=== PATIENT | female | born 1930 | race African-American/Black ===

== ENCOUNTER 2019-04-12 14:24 | Inpatient (IN) | payer MEDICARE, MEDICAID ==
--- NOTE | 2019-04-12 15:24 | RAD ---
LEFT SHOULDER 2 VIEWS: Date: 04/12/2019 HISTORY: Left shoulder deformity. FINDINGS: Very severe bone demineralization. Very severe medial displacement of an oblique fracture through the humeral neck with over 3.0 cm of displacement and severe foreshortening. There is no pneumothorax or pleural effusion. Atherosclerosis of aorta with ectasia. Old granulomatous disease. No dislocation. IMPRESSION: Very severely displaced oblique fracture through the humeral neck. Very considerable displacement and foreshortening and resultant deformity. Diffuse bony demineralization. Other findings as above. POS: TPC
--- NOTE | 2019-04-12 15:32 | CT ---
BRAIN CT WITHOUT IV CONTRAST: Date: 04/12/2019 HISTORY: Injury from a fall. FINDINGS: No focal mass or midline shift. No intra or extra-axial hemorrhage. Tiny focal area of mucosal diseas e in the left sphenoid sinus. Mastoids are clear. There is evidence for fairly prominent degenerative -type callus posterior to the dens in the upper cervical spine. IMPRESSION: No mass or bleed, or other significant acute process. POS: TPC
--- NOTE | 2019-04-12 15:38 | RAD ---
Exam: Chest one view HISTORY:Preoperative exam. Left humerus fracture. Comparison: None FINDINGS: Cardiac silhouette:Normal cardiac silhouette. Mitral valve annular calcification Aorta: Atherosclerosis of the aorta Pulmonary vessels: Normal Costophrenic angles: Clear LUNGS: Hyperinflation with chronic changes. Pneumothorax: None Osseous abnormalities: Diffuse bony mineralization. Proximal left humeral diaphyseal fracture. IMPRESSION: 1. Atherosclerosis. 2. Hyperinflation with chronic lung parenchymal changes.
[2019-04-12 15:40] LABS: #Basophils 0.1 thou/uL (0.0-0.2); #Monocytes 0.8 thou/uL (0.11-0.59); #Neutrophils 12.4 thou/uL (1.40-6.50); %Basophils 0.4 % (0.0-1.0); %Eosinophils 0.1 % (0.0-10.0); %Lymphocytes 7.1 % (21.0-51.0); %Monocytes 5.6 % (0.0-10.0); %Neutrophils 86.8 % (42.0-75.0); Hemoglobin 10.6 g/dL (12.0-16.0); Mean Corpuscular HGB CONC 33.1 g/dL (32.0-36.0); Mean Corpuscular Hemoglobin 28.4 pg (27.0-31.0); Mean Corpuscular Volume 85.8 fL (78.0-98.0); Mean Platelet Volume 8.3 fL (7.4-10.4); Platelet Count 360 thou/uL (130-400); RBC Distribution Width 17.1 % (11.5-14.5); Red Blood Cell (RBC) Count 3.72 mill/uL (4.20-5.40); White Blood Cell (WBC) Count 14.3 thou/uL (4.8-10.8)
[2019-04-12] MEDS ORDERED: Dextrose 5% in Water 1,000 ML IV PRN (15:49)
[2019-04-12] MEDS ORDERED: Ondansetron PF 4 MG/2 ML Vial IVP PRN (15:49)
[2019-04-12] MEDS ORDERED: Dextrose 50% Abboject 50 ML SYRINGE SLOW IVP PRN (15:49)
[2019-04-12 15:50] LABS: INR-International Normal Ratio 0.9; PTT 25.8 SEC (22.9-36.1); Prothrombin Time 12.6 SEC (12.0-14.7)
[2019-04-12] MEDS ORDERED: traMADol HCl 50 MG TAB PO PRN (15:52)
[2019-04-12] MEDS ORDERED: hydrALAZINE 20 MG/ML VIAL ONE (16:00)
[2019-04-12 16:05] LABS: ALT (SGPT) 9 U/L (8-55); AST (SGOT) 16 U/L (5-34); Albumin 3.7 g/dL (3.4-4.8); Alkaline Phosphatase 133 U/L (40-110); Anion Gap 13 mmol/L (10-20); BUN (Urea Nitrogen) 7 mg/dL (9.8-20.1); Bilirubin, Total 0.2 mg/dL (0.2-1.2); Calc. Creatinine Clearance 0 mL/min (70-130); Calcium 9.2 mg/dL (7.8-10.44); Carbon Dioxide 25 mmol/L (23-31); Chloride 107 mmol/L (98-107); Estimated GFR-MDRD 75; Globulin 3.1 g/dL (2.4-3.5); Glucose 125 mg/dL (83-110); Potassium 3.4 mmol/L (3.5-5.1); Protein, Total 6.8 g/dL (6.0-8.3); Sodium 142 mmol/L (136-145)
[2019-04-12 16:33] LABS: Bacteria/HPF 3+ HPF (None Seen); Bilirubin Negative (Negative); Blood, Urine Negative (Negative); Clarity Turbid (Clear); Glucose, Urine (Dipstick) Normal (Negative); Leukocyte 250 Leu/uL (Negative); Nitrite 2+ (Negative); Protein, Urine (Dipstick) 50 mg/dL (Neg-Trace); Urobilinogen Normal mg/dL (Less than 2); WBC/HPF 21-50 HPF (0-3)
[2019-04-12] MEDS ORDERED: cefTRIAXone\\ROCEPHIN 1 GM VIAL ONE (17:12)
[2019-04-12] MEDS ORDERED: Potassium Phosphate 15 MMOL in Sodium Chloride 0.9% 250 ML 250 ML IVPB SCH (17:30)
[2019-04-12] MEDS: cefTRIAXone\\ROCEPHIN 1 GM in Sodium Chloride 0.9% 100 ML IVPB SCH (18:07)
[2019-04-12 18:11] VITALS: BMI 23.8
[2019-04-12] MEDS: Acetaminophen 325 MG TAB PO SCH ×2 (18:44→23:39)
[2019-04-12] MEDS: Sodium Chloride 0.9% 1,000 ML IV SCH (18:44)
--- NOTE | 2019-04-12 20:18 | CON ---
DATE OF CONSULTATION: 04/12/2019 CHIEF COMPLAINT: Left shoulder pain. HISTORY OF PRESENT ILLNESS: Ms. Valadez is an 88-year-old female, who fell at home. She fractured her left proximal humerus. She normally walks fairly well, only occasionally using a walker. She tripped today and landed on her left shoulder. She lives independently. She does have family with her in the emergency department. She reports being in good health. She has not had any medical problems. She reports in many years and has not been in the hospital. She does smoke fairly heavily. PAST MEDICAL HISTORY: Hypertension. Otherwise, she denies active medical problems. PAST SURGICAL HISTORY: Right ankle fracture surgery, this was several years ago. REVIEW OF SYSTEMS: Positive for left shoulder pain. Otherwise, negative 10-point review of systems. FAMILY MEDICAL HISTORY: Noncontributory. SOCIAL HISTORY: The patient smokes cigarettes. She denies tobacco, alcohol, or drug use. IMAGING: X-rays of the left shoulder demonstrate a widely displaced two-part proximal humerus fracture. PHYSICAL EXAMINATION: VITAL SIGNS: Blood pressure is 196/75, respiratory rate of 18, pulse is 102, oxygen saturation 96%, and temperature is 97.9. GENERAL: She is alert, lying supine, no apparent distress. HEENT: Normocephalic and atraumatic. RESPIRATORY: Breathing comfortably. ABDOMEN: Soft, nontender, and nondistended. MUSCULOSKELETAL: The patient's left upper extremity has deformity. She is in a valgus alignment. She is able to flex and extend the digits and the wrist. She has a palpable radial pulse. She reports normal sensation in the hand. Skin is intact about the upper shoulder. She has pain with any motion. Right upper extremity and lower extremities are atraumatic. IMPRESSION: Left two-part proximal humerus fracture with wide displacement. PLAN: At this point, I had a discussion with the patient regarding treatment options. She could be treated nonoperatively. However, this would likely leave her with a poorly functioning arm. Her left arm is her dominant arm and she remains independent. Nonoperative treatment could result in nonunion for this significantly displaced fracture. I did explain with nonoperative treatment. She likely would be able to use her hand and wrist and elbow fine below the shoulder level. Alternatively, we could proceed with surgical intervention. I would plan for intramedullary nail if she wants to proceed with this. This will allow us to restore the anatomy of the shoulder and get [id number] contact to hopefully improve her chances of healing. This will give her the best outcome regarding her shoulder, but she will be at risk for medical complications given her age. She wants to proceed with surgery. She will be n.p.o. at midnight. We will plan first of this tomorrow. I have discussed with her family. All questions have been answered. Job ID: [id number]
[2019-04-12] MEDS ORDERED: Famotidine 20 MG TAB PO SCH (21:00)
[2019-04-13] MEDS: Sodium Chloride 0.9% 1,000 ML IV SCH (01:47)
[2019-04-13] MEDS ORDERED: Sodium Chloride 0.9% 1,000 ML IV SCH (02:45)
--- NOTE | 2019-04-13 03:03 | PRG ---
DATE OF SERVICE: 04/13/2019 SUBJECTIVE: The patient is currently on the surgical floor. She was admitted today status post a ground level fall at home, in which she sustained a left proximal humerus fracture. The patient is currently awaiting surgery tomorrow morning. She will be made n.p.o. after midnight. She tolerated a diet prior to midnight. Her pain is controlled and the nurse reports no issues at this time. PHYSICAL EXAMINATION: VITAL SIGNS: Stable. The patient is afebrile. GENERAL: The patient is resting comfortably in bed. She is asleep. She did open her eyes with verbal stimuli and nods her head that she has no "problems at this time." LUNGS: Had scant wheezing bilaterally. HEART: Regular rate and rhythm. ABDOMEN: Soft, flat, nontender with active bowel sounds. EXTREMITIES: Neurovascularly intact x4. ASSESSMENT/PLAN: 1. Status post ground level fall. 2. Left proximal humerus fracture. PLAN: Will be to continue supportive care. We will schedule DuoNebs with the patient's smoking history and the scant wheezing that I heard tonight. We will continue n.p.o. status after midnight, IV fluids for gentle hydration, pain control, and postoperatively, we will begin physical and occupational therapy. Job ID: [id number]
[2019-04-13] MEDS: Acetaminophen 325 MG TAB PO SCH ×3 (05:42→17:19)
[2019-04-13 06:51] LABS: Anion Gap 14 mmol/L (10-20); BUN (Urea Nitrogen) 5 mg/dL (9.8-20.1); Calc. Creatinine Clearance 48 mL/min (70-130); Calcium 8.5 mg/dL (7.8-10.44); Carbon Dioxide 20 mmol/L (23-31); Chloride 110 mmol/L (98-107); Estimated GFR-MDRD 88; Glucose 88 mg/dL (83-110); Magnesium 1.7 mg/dL (1.6-2.6); Phosphorus 3.1 mg/dL (2.3-4.7); Potassium 3.5 mmol/L (3.5-5.1); Sodium 140 mmol/L (136-145)
[2019-04-13 06:53] LABS: Hemoglobin 10.9 g/dL (12.0-16.0); Lymphocytes 25 % (21-51); MDiff Complete? YES; Mean Corpuscular HGB CONC 32.3 g/dL (32.0-36.0); Mean Corpuscular Hemoglobin 27.6 pg (27.0-31.0); Mean Corpuscular Volume 85.4 fL (78.0-98.0); Mean Platelet Volume 8.8 fL (7.4-10.4); Monocytes 9 % (0-10); Myelocyte 1 % (0-0); Neutrophil 65 % (42-75); Platelet Count 354 thou/uL (130-400); Platelet Morphology Comment Appears Adequate; Polychromasia SLIGHT = 2-3 cells (100X) (0-2/hpf); RBC Distribution Width 17.6 % (11.5-14.5); Red Blood Cell (RBC) Count 3.96 mill/uL (4.20-5.40); White Blood Cell (WBC) Count 8.5 thou/uL (4.8-10.8)
--- NOTE | 2019-04-13 07:55 | HP ---
REQUESTING PHYSICIAN: Dr. Juan Simpson. CONSULTING PHYSICIAN: Dr. Faustin. HISTORY OF PRESENT ILLNESS: Ms. Valadez is an 88-year-old female. The patient lives at home. Earlier today, the patient using walker to walk around her house, tripped on her porch and fell on her left side. She reports no loss consciousness or hit her head. After fall, she felt extreme pain of the left upper arm and left shoulder, unable to move left shoulder due to pain. No other injury to be reported upon arrival at the ED. The patient is awake and alert. GCS 15. Vital signs, blood pressure is elevated, 190 systole. Complained of left shoulder and left upper arm pain and limited range of motion. REVIEW OF SYSTEMS: Noncontributory except per HPI. PAST MEDICAL HISTORY: Pertinent with hypertension, in which she takes diltiazem 360 every day and chronic back pain with meloxicam as needed. PAST SURGICAL HISTORY: None. SOCIAL HISTORY: The patient lives at home with family. The patient ambulates around the house by herself using a walker. The patient denies drug use. Denies alcohol. Denies smoking history. CURRENT MEDICATIONS: 1. Diltiazem 360 a day. 2. Meloxicam. ALLERGIES: NO KNOWN DRUG ALLERGY. PHYSICAL EXAMINATION: GENERAL: Currently, the patient lying in bed comfortable with no acute respiratory distress. The patient alert and awake. GCS 15. HEENT: Atraumatic. No bruising. No tender to palpation. NECK: Trachea midline. No tender to palpation. CHEST: Atraumatic. No bruising. No crepitus. No tender to palpation. LUNGS: Breath sounds clear bilaterally. HEART: Regular rate and rhythm. ABDOMEN: Soft and nondistended. Bowel sounds active. PELVIS: Stable. BACK: No step up. No tender to palpation. Normal alignment. EXTREMITIES: Left upper extremity; extreme pain due to deformity of the upper arm. Tender to palpation. Limited range of motion due to pain. Bilateral lower extremities and right upper extremity sensation is intact. Pulses 2+ bilaterally and pulse of the right arm is normal. NEUROLOGIC: No focal neurology deficits. LABORATORY DATA: Initial workup showed normal coagulopathy, normal , PTT normal. The patient under no current anticoagulation. White count is 14.3, hemoglobin 10.6, platelet count is 360. Brain CT scan shows no mass or bleed. No other significant acute process. Left shoulder x-ray shows very severe displaced oblique fracture through the humeral neck. Chest x-ray shows hyperinflation with chronic lung parenchymal change. ASSESSMENT: 1. Status post ground level fall. 2. Left proximal humerus fracture. 3. History of hypertension. PLAN: The patient will be admitted to [facility] [address] Faustin will see the patient after dictation to make decision if patient will be fixed today or tomorrow. The patient will initiate nonpharmacological DVT prophylaxis, gastritis prophylaxis. Control blood pressure, control pain, manage pain. The patient will have n.p.o. for now. After the surgery, the patient anticipate working with physical therapy and occupational therapy. Anticipate placement in rehabilitation facility. Job ID: [id number]
[2019-04-13] MEDS ORDERED: CEFAZOLIN 2 GM in Premix Bag 1 BAG IVPB SCH (08:00)
[2019-04-13] MEDS ORDERED: Ondansetron PF 4 MG/2 ML Vial ONE (09:03)
[2019-04-13] MEDS ORDERED: Glycopyrrolate 0.2 MG/ML 5 ML SYRINGE ONE (09:03)
[2019-04-13] MEDS ORDERED: EPHEDRINE 25 MG/5 ML SYRINGE ONE (09:03)
[2019-04-13] MEDS ORDERED: Lidocaine 1% PF 5 ML VIAL ONE (09:03)
[2019-04-13] MEDS ORDERED: PHENYLEPHRINE-NS 100 MCG/ML 10 ML SYRINGE ONE (09:03)
[2019-04-13] MEDS ORDERED: PROPOFOL 200 MG/20 ML VIAL ONE (09:03)
[2019-04-13] MEDS ORDERED: Rocuronium Bromide 10 MG/ML (10ML VIAL) ONE (09:03)
[2019-04-13] MEDS ORDERED: Bupivacaine HCl 0.5%/Epinephrine 1:200,000/PF 30 ml Vial ONE (09:03)
[2019-04-13] MEDS ORDERED: Fentanyl 100 MCG/2 ML VIAL ONE ×2 (09:44→10:38)
[2019-04-13] MEDS ORDERED: Promethazine HCl 25 MG/ML VIAL SLOW IVP PRN (12:43)
[2019-04-13] MEDS ORDERED: Ondansetron HCl/PF 4 MG/2 ML Vial IVP PRN (12:43)
[2019-04-13] MEDS ORDERED: Promethazine HCl 25 MG/ML VIAL IM PRN (12:43)
--- NOTE | 2019-04-13 13:54 | RAD ---
EXAM: XR Fluoro Per Hour Portable PROVIDED CLINICAL HISTORY: ORIF left shoulder. Fracture left humerus. COMPARISON: 04/12/2019 FINDINGS/IMPRESSION: There has been interval placement of an antegrade intramedullary juan carlos with proximal and distal interlo cking screws one of which extends into the humeral head. There is improvement in alignment of fracture fragments. No hardware complication is seen. Correlation with intraoperative findings is rec ommended. Fluoroscopy: Time-29.9 seconds Dose-1.03 mGy
--- NOTE | 2019-04-13 14:19 | OP ---
DATE OF PROCEDURE: 04/13/2019 PROCEDURE PERFORMED: Left proximal humerus intramedullary nail. PREOPERATIVE DIAGNOSIS: Left two-part proximal humerus fracture. POSTOPERATIVE DIAGNOSIS: Left two-part proximal humerus fracture. COMPLICATIONS: None. ESTIMATED BLOOD LOSS: 100 mL. COUNTER ROLLER: Margoth Morales PA-C IMPLANTS: Synthes 9 mm proximal humeral nail short with helical blade. INDICATIONS: Ms. Valadez is an 88-year-old female, who has fallen and fractured her left proximal humerus. She was indicated for intramedullary nail fixation to restore anatomic alignment and promote healing. Risks have been reviewed in detail. She has elected to proceed with the operation. DESCRIPTION OF PROCEDURE: Ms. Valadez was identified in the preoperative holding area. Her correct extremity was marked. She was carried to the operating room. She was positioned supine. General anesthesia was induced. She was placed in a gentle beach-chair position. At this point, we prepped and draped the left upper extremity. We made a small incision over the proximal aspect of the shoulder. We dissected down to the deltoid muscle. The deltoid was split. We then identified an appropriate start point for nail. We inserted our guidewire. We split the rotator cuff as well. Next, we overdrilled the guidewire. We took x-ray images confirming guidewire placement. At this point, we inserted our 9 mm nail. We then seated this appropriately with x-ray. Next, we placed our guidewire in the centered position of the humeral head and impacted a helical blade. We finally placed a distal Crosslock screw. At this point, we placed our end cap and removed our guide. We took final images. We thoroughly irrigated with copious lavage. We then closed in layers including the rotator cuff, deltoid muscle, and fascia. A sterile dressing was applied. The patient was taken to the recovery room in good condition at this point without complication. Job ID: [id number]
[2019-04-13] MEDS: cefTRIAXone\\ROCEPHIN 1 GM in Sodium Chloride 0.9% 100 ML IVPB SCH (17:19)
--- NOTE | 2019-04-13 17:27 | PRG ---
DATE OF SERVICE: 04/13/2019 SUBJECTIVE: Ms. Valadez is an 88-year-old female, status post ground level fall. She sustained left proximal humerus fracture. She has a history of hypertension, treated with diltiazem 320 a day. The patient also sustained UTI on admission, has been treated with ceftriaxone. The patient had an event overnight. Vital signs stable. Pain is well controlled. The patient n.p.o. at midnight and has a plan to go to the OR with Dr. Faustin for left humerus fracture today. Currently, the patient lying in bed, comfortable with no acute respiratory distress. OBJECTIVE: VITAL SIGNS: Stable. LUNGS: Clear bilaterally. HEART: Regular rate and rhythm. ABDOMEN: Soft. Nondistended. EXTREMITIES: Neurovascularly intact x4. NEUROLOGY: No focal neurology deficits. ASSESSMENT: 1. Status post ground level fall. 2. Left proximal humerus fracture. 3. History of hypertension. PLAN: We will continue supportive care. Continue pain control. We will initiate pharmacological DVT prophylaxis postop. The patient will need to work with Physical Therapy and Occupational therapy. Anticipate placement in rehabilitation facility or jail facility. Job ID: [id number]
[2019-04-13] MEDS: CEFAZOLIN 2 GM in Premix Bag 1 BAG IVPB SCH (18:20)
--- NOTE | 2019-04-13 20:26 | RAD ---
EXAM: XR Fluoro Per Hour Portable PROVIDED CLINICAL HISTORY: ORIF left shoulder. Fracture left humerus. COMPARISON: 04/12/2019 FINDINGS/IMPRESSION: There has been interval placement of an antegrade intramedullary juan carlos with proximal and distal interlo cking screws one of which extends into the humeral head. There is improvement in alignment of fracture fragments. No hardware complication is seen. Correlation with intraoperative findings is rec ommended. Fluoroscopy: Time-29.9 seconds Dose-1.03 mGy Transcribed Date/Time: 04/13/2019 8:26 PM
[2019-04-13] MEDS: Ibuprofen 200 MG TAB PO PRN (21:43)
[2019-04-13] MEDS: Famotidine 20 MG TAB PO SCH (21:43)
[2019-04-14] MEDS: Acetaminophen 325 MG TAB PO SCH ×5 (00:17→23:35)
--- NOTE | 2019-04-14 00:25 | PRG ---
DATE OF SERVICE: 04/13/2019 SUBJECTIVE: The patient is currently on the surgical floor. She is hospital day #2, postop day 0, status post ground level fall when she sustained a left proximal humerus fracture. Today, she underwent left proximal humerus intramedullary nail placement by Dr. Faustin. She did well with this procedure. Postoperatively, she did not work with physical/occupational therapy. She is tolerating a diet and her pain is controlled. Her chief complaint this evening when I saw her was she "felt confused." Otherwise, she would follow commands. She interacted, but did appear to have some confusion regarding her IV lines and her blood pressure cuff. OBJECTIVE: VITAL SIGNS: Stable. She is afebrile. RESPIRATIONS: Nonlabored. EXTREMITIES: She is moving all 4 extremities without difficulty. ASSESSMENT/PLAN: 1. Status post ground level fall. 2. Left proximal humerus fracture, status post open reduction and internal fixation. PLAN: Will be to continue supportive care. Encourage physical and occupational therapy tomorrow. We have asked the nurses to keep her on low-flow oxygen to help rid her of the anesthesia gases that maybe contributing to her confusion and continue to monitor. Job ID: [id number]
[2019-04-14] MEDS: CEFAZOLIN 2 GM in Premix Bag 1 BAG IVPB SCH (01:47)
[2019-04-14] MEDS: Ibuprofen 200 MG TAB PO PRN (11:05)
--- NOTE | 2019-04-14 14:07 | PRG ---
DATE OF SERVICE: 04/14/2019 SUBJECTIVE: Ms. Valadez is an 88-year-old female, status post ground level fall. She sustained left humerus fracture. She underwent ORIF of left humerus fractures yesterday. The patient also sustained UTI on admission, has been treated. Since yesterday, the patient is a little confused. She is alert, awake, but oriented x2. She does not recognize she is in the hospital. She reports she has been sleeping well. Her blood pressure is trending up despite that she has been put back on her home medication. Her urine is adequate. She is able to tolerate her diet. OBJECTIVE: GENERAL: The patient is currently lying in bed comfortable with no acute respiratory distress. VITAL SIGNS: Temperature 98, heart rate 92, respiratory rate 16, O2 saturation 94 on room air, and blood pressure 178/79. LUNGS: Clear bilaterally. HEART: Regular rate and rhythm. ABDOMEN: Soft and nondistended. EXTREMITIES: Left humerus fracture postop, clean, dry, and intact. NEUROLOGIC: No focal neurologic deficits. The patient is alert and awake. GCS 15, but oriented x2. ASSESSMENT: 1. Status post ground level fall. 2. Left humerus fracture, status post open reduction and internal fixation of left humerus fracture. 3. History of hypertension. 4. Delirium. PLAN: We will continue supportive care. Continue pain control. Encourage working with Physical Therapy and Occupational Therapy. Physical Therapy recommended placement in rehabilitation facility. Job ID: [id number]
[2019-04-14] MEDS: Famotidine 20 MG TAB PO SCH (20:53)
[2019-04-14] MEDS: Enoxaparin Sodium 30 MG/0.3 ML SYRINGE SC SCH (20:53)
[2019-04-14] MEDS ORDERED: Melatonin 3 MG TAB PO PRN (21:40)
--- NOTE | 2019-04-14 23:17 | PRG ---
DATE OF SERVICE: 04/14/2019 SUBJECTIVE: The patient is currently on the surgical floor. She is hospital day #3, postop day #2, status post ground level fall when she sustained a left proximal humerus fracture, which she has undergone open reduction and internal fixation of same. The patient also is being treated for urinary tract infection noted on admission. The patient last night had some episodes of confusion which today they were reported as improved though tonight the evening nurse reports that she does have some confusion again most likely consistent with sundowning. She is appropriate and easily redirected. PHYSICAL EXAMINATION: VITAL SIGNS: Stable. The patient is afebrile. GENERAL: The patient is currently asleep. The nurses asked that I not waken her as she has just gone to sleep. She appears comfortable. LUNGS: Her respirations appear nonlabored. ASSESSMENT AND PLAN: 1. Status post ground level fall. 2. Status post open reduction and internal fixation of left humerus fracture. 3. History of hypertension. 4. Delirium. Plan will be to continue supportive care. Encourage physical and occupational therapy and await placement decision. Job ID: [id number]
[2019-04-15] MEDS: Acetaminophen 325 MG TAB PO SCH ×3 (05:38→17:49)
[2019-04-15] MEDS: Ibuprofen 200 MG TAB PO PRN (08:16)
--- NOTE | 2019-04-15 14:36 | PRG ---
DATE OF SERVICE: 04/15/2019 SUBJECTIVE: The patient is currently on the surgical floor. She is on hospital day #4, postop day #3, status post ground level fall when she sustained a left proximal humerus fracture, which she has undergone open reduction and internal fixation of the same. The patient is also being treated for urinary tract infection noted on admission. The patient this morning, stated her pain was well controlled. She did eat some of her breakfast. She currently has no complaints. The patient was noted last night to have some episodes of confusion, but today mentation has improved and she is alert and oriented. Likely, confusion is secondary to sundowning. OBJECTIVE: VITAL SIGNS: Temperature 98.7, pulse 100, blood pressure 163/72, respirations 16, oxygen saturation 98% on room air. GENERAL: The patient is currently awake and oriented. She has family at her bedside. She is AO x3. LUNGS: Respirations nonlabored, no tachypnea. HEENT: Sclerae nonicteric, membranes moist. NECK: Full range of motion. No JVD. MSK: Decreased range of motion to left side, painful with movement. Full range of motion to upper extremities. SKIN: Warm and intact. ASSESSMENT: 1. Status post ground level fall. 2. Status post open reduction and internal fixation of left humerus fracture. 3. History of hypertension. 4. Delirium. PLAN: Plan will be to continue supportive care. Encourage physical and occupational therapy, and await transition to [facility] for therapy. Of note , she did have a blood culture that showed Staph epidermidis 1/2, which is likely a contaminant. She otherwise is afebrile and hemodynamically stable. Otherwise, the patient has no complications and no complaints. Job ID: [id number] [facility]
[2019-04-15] MEDS: Famotidine 20 MG TAB PO SCH (20:14)
[2019-04-15] MEDS: Enoxaparin Sodium 30 MG/0.3 ML SYRINGE SC SCH (20:22)
[2019-04-16] MEDS: Acetaminophen 325 MG TAB PO SCH ×2 (00:10→05:30)
--- NOTE | 2019-04-16 00:57 | PRG ---
DATE OF SERVICE: 04/16/2019 SUBJECTIVE: The patient remains on the surgical floor. She is hospital day 5, postop day 4, status post ground level fall when she sustained a left proximal humerus fracture. She underwent left ORIF of the same and she has been worked with Physical and Occupational Therapy, awaiting placement. She is tolerating a diet. Her pain is controlled. Her bowel function has returned. PHYSICAL EXAMINATION: VITAL SIGNS: Stable. The patient does have recorded two episodes of tachycardia, 107 and 110. This may be related to when she is confused and interacting with staff. She demonstrated this while I was there. GENERAL: She was awake, conversant, appropriate, but there did appear to be some confusion noted. The nurses did find out tonight that the patient states that she drinks daily 1 to 2 beers a night. Otherwise, the patient appears comfortable. Respirations got labored. HEART: Regular rate and rhythm. ABDOMEN: Soft with active bowel sounds. EXTREMITIES: Neurovascularly intact x4. Left upper extremity has clean, dry, and intact splint. ASSESSMENT: 1. Status post ground level fall. 2. Status post open reduction and internal fixation of left humerus fracture. 3. History of hypertension. 4. Delirium. PLAN: Plan will be to continue supportive care. Await placement decision and in light of the patient's informing us of her drinking history, we will start Ser[facility]. Job ID: [id number]
[2019-04-16] MEDS ORDERED: Oxazepam 10 MG CAP PO SCH (06:00)
[2019-04-16] MEDS ORDERED: Thiamine 100 MG TAB PO SCH (09:00)
[2019-04-16] MEDS ORDERED: Folic Acid 1 MG TAB PO SCH (09:00)
[2019-04-16 11:48] VITALS: TEMP 97.8
[2019-04-16] MEDS ORDERED: cloNIDine 0.1 MG TAB PO SCH (12:00)
[2019-04-16] MEDS ORDERED: Acetaminophen 650 MG/20.3 ML UDCUP PO SCH (12:00)
[2019-04-16 14:36] VITALS: BP 132/69
--- NOTE | 2019-04-17 04:11 | DIS ---
DATE OF ADMISSION: 04/12/2019 DATE OF DISCHARGE: 04/16/2019 RESIDENT: Reno Quevedo DO ADMITTING ATTENDING: Arnel Craven DO DISCHARGE ATTENDING: Arnel Craven DO PROCEDURES: 1. On 04/12/2019, left shoulder x-ray revealed very severely displaced oblique fracture through the femoral neck. Very considerable displacement and foreshortening and resultant deformity. Diffuse bony demineralization. 2. Brain CT on 04/12/2019 revealed no mass or bleed, or other significant acute process. 3. Fluoroscopy on 04/13/2019 revealed there has been interval placement of an antegrade intramedullary juan carlos with proximal and distal interlocking screws, one of which extends into the humeral head. There is improvement of alignment of the fracture fragments. No hardware complication is seen. 4. On 04/13/2019, left proximal humerus intramedullary nail was placed for a left two part proximal humerus fracture. CONSULTATION: Orthopedics, Bill Faustin MD. DISCHARGE MEDICATIONS: 1. Diltiazem 360 mg p.o. daily. 2. Oxymetazoline nasal spray 30 mL per spray two spray, normal saline p.r.n. 3. Tylenol Elixir 1000 mg p.o. q.6 hours schedule. 4. Clonidine 0.1 mg p.o. q.6 hours. 5. Lovenox 30 mg subcutaneous at bedtime. 6. Pepcid 20 mg p.o. q.p.m. 7. Folic acid 1 mg p.o. daily. 8. Ibuprofen 200 mg p.o. q.6 p.r.n. pain. 9. DuoNebs q.4 hours p.r.n. wheezing. 10. Melatonin 3 mg p.o. at bedtime p.r.n. insomnia. 11. Thiamine 100 mg p.o. daily. 12. Clear Eyes Complete eyedrops, 1 to 2 drops per eye q.i.d. p.r.n. dryness. DISCONTINUED MEDICATIONS: 1. Ibuprofen 400 mg p.o. q.6. 2. Meloxicam 7.5 mg p.o. daily. PRIMARY DIAGNOSES: 1. Status post ground level fall. 2. Status post open reduction and internal fixation of left humerus fracture. 3. Delirium. SECONDARY DIAGNOSES: 1. Hypertension. 2. History of 1 to 2 alcoholic beverages per day. HISTORY OF PRESENT ILLNESS/HOSPITAL COURSE: The patient presented on 04/12/2019 after tripping on her porch while using her walker. She reported no loss of consciousness or hit her head. After the fall, she felt extreme pain in her left upper arm and left shoulder, and she was unable to move due to pain. No other injury was reported upon arrival to the ED. The patient was awake and alert. GCS was 15. Vital signs were stable. At this time, home medications were continued. Shoulder x-ray revealed very severely displaced oblique fracture through the humeral neck on her left side. Dr. Bill Faustin subsequently performed left proximal humerus intramedullary nailing without complications. After procedure was performed, she worked with physical therapy and occupational therapy, and it was decided that she would benefit from rehab. The patient agreed to be placed for rehab. Otherwise, patient's pain has been fairly well controlled with Tylenol, but added on clonidine to help with her blood pressures, and potentially added pain alleviation benefit. Otherwise, the patient is stable for discharge to rehab. Electrolytes were repleted as necessary. Of note, patient did say she drank only 2 beers per day but did not appear to be within withdrawals. Pt was seen with Dr. Craven at bedside who agrees with plan. DISPOSITION: Stable. DISCHARGE INSTRUCTIONS: 1. Location: [facility]. 2. Diet: Heart healthy. 3. Activity: Orthopedic limitations as noted in physical therapy, occupational therapy. 4. Followup: Follow up with primary care physician after discharge from the rehab. 5. Patient will need follow up with orthopedics. Job ID: [id number] [facility]
== END 2019-04-16 15:08 | DRG 493 ==
LOC: ERS 14:24 → SURG A 15:52
PROVIDERS: ADMIT Surgery; ATTEND Surgery
PROC: 0PSD06Z Reposition Left Humeral Head with Intramedullary Internal Fixation Device, Open Approach (ICD-10-PCS; principal; 2019-04-13)
DX: S42.202A Unspecified fracture of upper end of left humerus, initial encounter for closed fracture (principal); N39.0 Urinary tract infection, site not specified; I10 Essential (primary) hypertension; W18.30XA Fall on same level, unspecified, initial encounter; G89.29 Other chronic pain; F17.210 Nicotine dependence, cigarettes, uncomplicated; R41.0 Disorientation, unspecified
CPT/HCPCS: 36415; 36416; 70450; 71045; 76000; 80048; 80053; 81003; 81015; 83735; 83880; 84100; 84484; 85007; 85025; 85027; 85610; 85730; 87040; 87149; 93005; 94640; 94760; 96361; 96374; 96375; C1713; C1769; G0390; J0360; J0670; J0690; J0696; J1650; J1956; J2001; J2405; J2704; J3010; J3490; J7050; J7620